=== PATIENT | male | born 1975 | race Caucasian/White ===

== ENCOUNTER 2017-06-09 07:40 | Emergency (ER) | payer BC ==
[2017-06-09 08:03] VITALS: BP 117/86
--- NOTE | 2017-06-09 08:23 | UC ---
Lower Extremity/Ankle HPI - HPI Summary HPI Summary: Wed of last week he twisted his ankle but there was no fall. He was fine while he walked on it there after. He then started to have increased pain over the last few days. he has a hx of gout. He drinks 4-6 drinks per day. No fall over the last few days as well. It hurts to move it. - History of Current Complaint Chief Complaint: UCLowerExtremity Stated Complaint: LEFT FOOT COMPLAINT Time Seen by Provider: 06/09/17 08:03 Hx Obtained From: Patient Onset/Duration: Gradual Onset, Lasting Days, Still Present Severity Initially: Mild Severity Currently: Severe Pain Intensity: 0 Aggravating Factor(s): Standing, Ambulation Alleviating Factor(s): Rest, Elevation Able to Bear Weight: Yes - Allergies/Home Medications Allergies/Adverse Reactions: Allergies Allergy/AdvReac Type Severity Reaction Status Date / Time No Known Allergies Allergy Verified 06/09/17 07:56 Home Medications: Home Medications Naproxen 500 mg PO BID PRN 06/09/17 [History Confirmed 06/09/17] PMH/Surg Hx/FS Hx/Imm Hx Previously Healthy: No - gout. Other History Of: Negative For: HIV, Hepatitis B, Hepatitis C, Anticoagulant Therapy - Surgical History Surgical History: Yes Surgery Procedure, Year, and Place: cranial surgery [id number] - Family History Known Family History: Positive: Hypertension Negative: Cardiac Disease, Diabetes, Renal Disease - Social History Occupation: Employed Full-time Alcohol Use: Daily Alcohol Amount: 4-6 beer daily Substance Use Type: None Smoking Status (MU): Heavy Every Day Tobacco Smoker Type: Cigarettes Amount Used/How Often: 1/2 ppd Review of Systems Musculoskeletal: Arthralgia All Other Systems Reviewed And Are Negative: Yes Physical Exam Triage Information Reviewed: Yes Appearance: Well-Appearing, No Pain Distress, Well-Nourished, Pain Distress - Pain only with manipulation of the ankle. Vital Signs: Initial Vital Signs Temp 98.4 F 06/09/17 07:57 Pulse 83 06/09/17 07:57 Resp 18 06/09/17 07:57 BP 117/86 06/09/17 07:57 Pulse Ox 99 06/09/17 07:57 Vital Signs Reviewed: Yes Eyes: Positive: Conjunctiva Clear ENT: Positive: Normal ENT inspection Neck: Negative: Nuchal Rigidity Respiratory: Positive: No accessory muscle use. Negative: Respiratory distress Cardiovascular: Positive: Brisk Capillary Refill Abdomen Description: Negative: Distended Musculoskeletal Exam: Other - Left ankle has moderate effusion and is warm. THere is no lateral or medial malleoli tenderness. Neg heel sqeeze. No pain with palpation and sqeeuzing metatarsals. There is tenderness of the ankle joint space. No achilles or calf tenderness. Neurological: Positive: Alert, Muscle Tone Normal. Negative: Fatigued Psychological: Positive: Age Appropriate Behavior Skin: Negative: rashes Lower Extremity Course/Dx - Course Course Of Treatment: No hx of trauma warranting a broken bone. There is no gloria tenderness. THere is joint effusion. This is c/w gout. He agrees to f/u with pcp. He is supposed to be on a daily gout medication but says it gives him GI upset so he tends not to take it. - Differential Dx/Diagnosis Provider Diagnoses: gout left ankle. Discharge - Discharge Plan Condition: Good Disposition: HOME Prescriptions: Colchicine* [Colcrys*] 0.6 mg PO Q2H PRN #12 tab MDD 3 PRN Reason: Pain Patient Education Materials: Gout (ED), Low Purine Diet (ED) Forms: *Work Release Referrals: Yg Espinosa MD [Primary Care Provider] -
== END 2017-06-09 08:34 | disposition home or self-care (01) ==
LOC: UCCORT 07:40
DX: M10.9 Gout, unspecified (principal); F17.210 Nicotine dependence, cigarettes, uncomplicated
CPT/HCPCS: 99212; G0463

== ENCOUNTER 2018-01-11 08:27 | Emergency (ER) | payer BC ==
[2018-01-11 08:43] VITALS: BP 138/91
--- NOTE | 2018-01-11 09:05 | UC ---
Throat Pain/Nasal Monster HPI - HPI Summary HPI Summary: runny nose x 3 days nasal congestion , cough, bilateral ear fullness no fever, + chills, - History of Current Complaint Chief Complaint: UCGeneralIllness Stated Complaint: EARS,CONGESTION,SORE THROAT Time Seen by Provider: 01/11/18 08:56 Hx Obtained From: Patient Onset/Duration: Gradual Onset, Lasting Days - 3, Still Present Severity: Mild Pain Intensity: 2 Cough: Nonproductive Associated Signs & Symptoms: Positive: Nasal Discharge. Negative: Hoarseness, Sinus Discomfort, Fever, Vomiting, Rash - Allergies/Home Medications Allergies/Adverse Reactions: Allergies Allergy/AdvReac Type Severity Reaction Status Date / Time No Known Allergies Allergy Verified 01/11/18 08:39 Home Medications: Home Medications Acetaminophen [Tylenol Extra Strength] 500 mg PO ONCE 01/11/18 [History Confirmed 01/11/18] PMH/Surg Hx/FS Hx/Imm Hx Cardiovascular History: Hypertension Respiratory History: Asthma Other History Of: Negative For: HIV, Hepatitis B, Hepatitis C, Anticoagulant Therapy - Surgical History Surgical History: Yes Surgery Procedure, Year, and Place: cranial surgery [id number] - Family History Known Family History: Positive: Hypertension Negative: Cardiac Disease, Diabetes, Renal Disease - Social History Alcohol Use: Occasionally Alcohol Amount: 4-6 beer daily Substance Use Type: None Smoking Status (MU): Heavy Every Day Tobacco Smoker Type: Cigarettes Amount Used/How Often: 1/2 ppd Review of Systems Constitutional: Negative Skin: Negative Eyes: Negative ENT: Sore Throat, Ear Ache, Nasal Discharge Respiratory: Cough Is Patient Immunocompromised?: No All Other Systems Reviewed And Are Negative: Yes Physical Exam Triage Information Reviewed: Yes Appearance: Well-Appearing, No Pain Distress, Well-Nourished Vital Signs: Initial Vital Signs Temp 98.6 F 01/11/18 08:39 Pulse 87 01/11/18 08:39 Resp 20 01/11/18 08:39 BP 138/91 01/11/18 08:39 Pulse Ox 100 01/11/18 08:39 Vital Signs Reviewed: Yes Eyes: Positive: Conjunctiva Clear ENT: Positive: Normal ENT inspection, Hearing grossly normal, Pharynx normal, Nasal congestion, TMs normal Neck: Positive: Supple, Nontender, No Lymphadenopathy Respiratory: Positive: Chest non-tender, Lungs clear, Normal breath sounds Cardiovascular: Positive: RRR, No Murmur, Pulses Normal Skin Exam: Normal Throat Pain/Nasal Course/Dx - Differential Dx/Diagnosis Provider Diagnoses: uri Discharge - Sign-Out/Discharge Documenting (check all that apply): Patient Departure All imaging exams completed and their final reports reviewed: No Studies - Discharge Plan Condition: Stable Disposition: HOME Patient Education Materials: Upper Respiratory Infection (ED) Forms: *Work Release Referrals: Yg Espinosa MD [Primary Care Provider] - If Needed - Billing Disposition and Condition Condition: STABLE Disposition: Home
== END 2018-01-11 09:09 | disposition home or self-care (01) ==
LOC: UCCORT 08:27
DX: J06.9 Acute upper respiratory infection, unspecified (principal); I10 Essential (primary) hypertension; F17.210 Nicotine dependence, cigarettes, uncomplicated
CPT/HCPCS: 99211; G0463